=== PATIENT | female | born 1950 | race Caucasian/White ===

== ENCOUNTER 2016-11-28 14:32 | Emergency (ER) | payer OTHER ==
[~2016-11-28] VITALS: Ht 152.4 cm; Wt 136.8 kg
[~2016-11-28 14:32] MED LIST: ALBUTEROL17 G1 IH; ALDACTONE100 MG PO; ASPIR 8181 M1 PO; ASPIRIN E.C.81 M2 PO; ASPIRIN EC325 MG PO; ATORVASTATIN CA40 MG PO; ATROVENT 00.5 MG/2.5 IH; AUTOPEN1 EACH SQ; Albuterol IH; Aldactone PO; CEFTIN500 MG PO; CLOPIDOGREL75 MG PO; COLACE100 MG PO; COZAAR25 MG PO; CYMBALTA60 MG PO; Colace PO; DELTASONE20 MG PO; DRISDOL50000 UNIT PO; ELAVIL25 MG PO; ENDOCET 5-3251 EACH PO; FLEXERIL10 MG PO; FUROSEMIDE40 MG PO; HUMALOG100 UNIT/1 SC; HUMALOG100 UNIT/1 SQ; LANTUS 3 M100 UNITS/ SC; LANTUS 3 M100 UNITS1 SC; LANTUS100 UNIT/1 SQ; LASIX40 MG PO; Lantus 3 ml Solostar SC; Levothroid,Synthroid PO; NORVASC5 MG PO; NOVOLOG PE100 UNITS/ SC; NOVOLOG100 UNIT/1 SQ; Norvasc PO; OXYCODONE5 MG PO; PREDNISONE10 MG PO; PROVENTIL,2.5 MG/3 M IH; Proventil,Ventolin H IH; SENNA8.6 M1 PO; SENOKOT S,PE1 TABLET PO; SYMBICORT60 INHALAT IH; SYNTHROID50 MCG PO; Symbicort 160-4.5 mc IH; WELCHOL625 MG PO; XOPENEX1.25 MG/0. IH; ZITHROMAX Z-PA250 MG PO; ZITHROMAX250 MG PO; ZOLOFT100 M1 PO; ZOLOFT100 MG PO; Zoloft PO; predniSONE PO
[2016-11-28] MEDS ORDERED: FLEXERIL10 MG PO (18:29)
[2016-11-28 19:05] VITALS: BP 141/62
== END 2016-11-28 19:06 | disposition home or self-care (01) ==
LOC: EME 14:32
DX: S73.191A Other sprain of right hip, initial encounter (principal); E11.9 Type 2 diabetes mellitus without complications; Z79.4 Long term (current) use of insulin; Z99.81 Dependence on supplemental oxygen; Z86.73 Personal history of transient ischemic attack (TIA), and cerebral infarction without residual deficits; Z88.1 Allergy status to other antibiotic agents; Z88.8 Allergy status to other drugs, medicaments and biological substances
CPT/HCPCS: 73502; 73552; 99281; 99284

== ENCOUNTER 2016-12-09 13:23 | Inpatient (IN) | payer OTHER ==
[~2016-12-09] VITALS: Ht 152.4 cm; Wt 131.0 kg
[2016-12-09] MEDS ORDERED: ASPIR 8181 M1 PO (14:51)
[2016-12-09] MEDS ORDERED: CYMBALTA60 MG PO (14:53)
[2016-12-09] MEDS ORDERED: OXAYDO5 MG PO (14:54)
[2016-12-09] MEDS ORDERED: CALTRATE 600 +1 EAC2 PO (14:55)
[2016-12-09 15:49] LABS: EOSINOPHIL (%) 2.1 % (0-5); EOSINOPHIL COUNT 0.1 K/uL (0-0.3); HEMATOCRIT 39.2 % (36.0-46.0); IMMATURE GRANULOCYTE (%) 0.2 % (0.0-0.7); INSTRUMENT ABS NEUTROPHIL CT 5.3 K/uL; LYMPHOCYTE COUNT 0.7 K/uL (1.0-2.8); MCH 25.7 PG (29.0-34.0); MCHC 31.4 G/DL (30.0-36.0); MCV 81.8 FL (83-99); MEAN PLAT.VOLUME 10.6 uM^3 (9.5-12.4); MONOCYTE (%) 6.4 % (3-12); MONOCYTE COUNT 0.4 K/uL (0-0.8); NEUTROPHIL (%) 80.2 % (45-76); NEUTROPHIL COUNT 5.3 K/uL (1.8-6.4); PLATELET COUNT 167 K/uL (156-360); RBC DIS.WIDTH-CV 13.2 % (11.8-14.6); RBC DIS.WIDTH-SD 39.8 % (39-53); RED BLOOD COUNT 4.79 M/uL (3.80-5.20); WHITE BLOOD COUNT 6.6 K/uL (4.1-10.2)
[2016-12-09 15:57] LABS: CHLORIDE 99 mEq/L (99-109); POTASSIUM 4.1 mEq/L (3.7-5.4); SODIUM 141 mEq/L (136-147)
[2016-12-09 15:58] LABS: GLUCOSE 131 mg/dL (70-99)
[2016-12-09 16:00] LABS: ANION GAP 12 MEQ/L (2-14)
[2016-12-09 16:02] LABS: GFR ESTIMATE (CALCULATED) 32 mL/min/
[2016-12-09 16:03] LABS: UREA NITROGEN (BUN) 66 mg/dL (9-23)
[2016-12-09] MEDS ORDERED: FLEXERIL10 MG PO (16:28)
[2016-12-09] MEDS ORDERED: PLAVIX PO (16:28)
[2016-12-09] MEDS ORDERED: LITE COAT ASPI325 M1 PO (16:30)
[2016-12-09] MEDS ORDERED: FUROSEMIDE40 MG PO (16:31)
[2016-12-09] MEDS ORDERED: HUMALOG100 UNIT/1 SC (16:33)
[2016-12-09] MEDS ORDERED: HYDROXYZINE HCL25 MG PO (16:34)
[2016-12-09] MEDS ORDERED: TOUJEO SOL300 UNIT/1 SC (16:34)
[2016-12-09] MEDS ORDERED: MIRALAX255 GM PO (16:34)
[2016-12-09] MEDS ORDERED: AMLODIPINE PO (16:35)
[2016-12-09] MEDS ORDERED: VENTOLIN HFA18 GM IH (16:35)
[2016-12-09 18:44] VITALS: BP 180/75
[2016-12-09 20:20] LABS: POINT-OF-CARE METER ID UU14162508
[2016-12-10] VITALS (7 sets, daily range): BP systolic 113–152; BP diastolic 43–73
[2016-12-10 07:15] LABS: ANION GAP 8 MEQ/L (2-14); CHLORIDE 100 MEQ/L (99-109); GFR ESTIMATE (CALCULATED) 40 mL/min/; GLUCOSE 149 mg/dL (70-99); POTASSIUM 3.8 MEQ/L (3.7-5.4); SAMPLE HEMOLYSIS CHECK 0; SAMPLE ICTERIC CHECK 0; SAMPLE LIPEMIA CHECK 0; SODIUM 142 MEQ/L (136-147); UREA NITROGEN (BUN) 52 mg/dL (9-23)
[2016-12-10 11:49] LABS: POINT-OF-CARE METER ID UU14162508
[2016-12-11 03:34] VITALS: BP 139/62
[2016-12-11 06:22] LABS: POINT-OF-CARE METER ID UU14162508
[2016-12-11 07:12] VITALS: BP 130/61
[2016-12-11 07:12] LABS: EOSINOPHIL (%) 4.1 % (0-5); EOSINOPHIL COUNT 0.2 K/uL (0-0.3); HEMATOCRIT 33.3 % (36.0-46.0); IMMATURE GRANULOCYTE (%) 0.5 % (0.0-0.7); INSTRUMENT ABS NEUTROPHIL CT 3.9 K/uL; LYMPHOCYTE COUNT 0.9 K/uL (1.0-2.8); MCH 25.3 PG (29.0-34.0); MCHC 30.3 G/DL (30.0-36.0); MCV 83.5 FL (83-99); MEAN PLAT.VOLUME 10.7 uM^3 (9.5-12.4); MONOCYTE (%) 9.1 % (3-12); MONOCYTE COUNT 0.5 K/uL (0-0.8); NEUTROPHIL (%) 69.4 % (45-76); NEUTROPHIL COUNT 3.9 K/uL (1.8-6.4); PLATELET COUNT 144 K/uL (156-360); RBC DIS.WIDTH-CV 13.4 % (11.8-14.6); RED BLOOD COUNT 3.99 M/uL (3.80-5.20); WHITE BLOOD COUNT 5.6 K/uL (4.1-10.2)
[2016-12-11 07:32] LABS: ANION GAP 8 MEQ/L (2-14); CHLORIDE 99 MEQ/L (99-109); GFR ESTIMATE (CALCULATED) 37 mL/min/; GLUCOSE 144 mg/dL (70-99); MAGNESIUM 2.2 mg/dl (1.3-2.7); SAMPLE HEMOLYSIS CHECK 0; SAMPLE ICTERIC CHECK 0; SAMPLE LIPEMIA CHECK 0; SODIUM 142 MEQ/L (136-147); UREA NITROGEN (BUN) 43 mg/dL (9-23)
[2016-12-11 07:41] LABS: UR CREATININE CONCENTRATION 90.7 MG/DL
[2016-12-11 11:21] VITALS: BP 118/57
[2016-12-11 15:05] LABS: ADD MIUA? YES; BILIRUBIN NEGATIVE; BLOOD NEGATIVE; COLOR YELLOW ((YELLOW)); GLUCOSE (STRIP) NEGATIVE; KETONES NEGATIVE; LEUKOCYTES MODERATE; NITRITE NEGATIVE; PROTEIN (STRIP) NEGATIVE; SPECIFIC GRAVITY 1.014 (1.000-1.030); UROBILINOGEN 0.2 MG/DL (0.2-1.0)
[2016-12-11 15:29] VITALS: BP 120/58
[2016-12-11 15:52] LABS: RED BLOOD CELLS 0-5 /HPF (0-5)
[2016-12-11 15:53] LABS: BACTERIA 1+ /HPF; CASTS NONE SEEN /LPF; CRYSTALS NONE SEEN; EPITHELIAL CELLS 3+ /HPF; MUCUS NONE SEEN /LPF; UCUL ADDED? NO
[2016-12-11 23:22] VITALS: BP 113/59
[2016-12-12 06:49] LABS: EOSINOPHIL (%) 4.2 % (0-5); EOSINOPHIL COUNT 0.3 K/uL (0-0.3); HEMATOCRIT 34.8 % (36.0-46.0); IMMATURE GRANULOCYTE (%) 0.2 % (0.0-0.7); INSTRUMENT ABS NEUTROPHIL CT 4.3 K/uL; MCH 25.8 PG (29.0-34.0); MCHC 30.7 G/DL (30.0-36.0); MCV 84.1 FL (83-99); MEAN PLAT.VOLUME 10.8 uM^3 (9.5-12.4); MONOCYTE (%) 8.5 % (3-12); MONOCYTE COUNT 0.5 K/uL (0-0.8); NEUTROPHIL (%) 69.8 % (45-76); NEUTROPHIL COUNT 4.3 K/uL (1.8-6.4); PLATELET COUNT 155 K/uL (156-360); RBC DIS.WIDTH-CV 13.4 % (11.8-14.6); RBC DIS.WIDTH-SD 41.5 % (39-53); RED BLOOD COUNT 4.14 M/uL (3.80-5.20); WHITE BLOOD COUNT 6.1 K/uL (4.1-10.2)
[2016-12-12 07:14] LABS: ANION GAP 7 MEQ/L (2-14); CHLORIDE 97 MEQ/L (99-109); GFR ESTIMATE (CALCULATED) 32 mL/min/; GLUCOSE 164 mg/dL (70-99); POTASSIUM 4.4 MEQ/L (3.7-5.4); SAMPLE HEMOLYSIS CHECK 0; SAMPLE ICTERIC CHECK 0; SAMPLE LIPEMIA CHECK 0; SODIUM 138 MEQ/L (136-147); UREA NITROGEN (BUN) 49 mg/dL (9-23)
[2016-12-12 07:35] VITALS: BP 122/54
[2016-12-12] MEDS ORDERED: CLOPIDOGREL75 MG PO (10:48)
[2016-12-12] MEDS ORDERED: BACTRIM,SEPT1 TABLET PO (10:51)
== END 2016-12-12 13:06 | disposition home health service (06) | DRG 602 ==
LOC: EME 13:23 → EDOF 16:21 → 2EAST 16:21
PROVIDERS: Emergency Medicine; Internal Medicine; Internal Medicine Nephrology
DX: L03.116 Cellulitis of left lower limb (principal); N17.0 Acute kidney failure with tubular necrosis; T50.1X5A Adverse effect of loop [high-ceiling] diuretics, initial encounter; J96.11 Chronic respiratory failure with hypoxia; L97.821 Non-pressure chronic ulcer of other part of left lower leg limited to breakdown of skin; L97.811 Non-pressure chronic ulcer of other part of right lower leg limited to breakdown of skin; L03.115 Cellulitis of right lower limb; E11.22 Type 2 diabetes mellitus with diabetic chronic kidney disease; I12.9 Hypertensive chronic kidney disease with stage 1 through stage 4 chronic kidney disease, or unspecified chronic kidney disease; N18.3 Chronic kidney disease, stage 3 (moderate); M70.61 Trochanteric bursitis, right hip; M70.62 Trochanteric bursitis, left hip; E03.9 Hypothyroidism, unspecified; G47.30 Sleep apnea, unspecified; J44.9 Chronic obstructive pulmonary disease, unspecified; J45.909 Unspecified asthma, uncomplicated; K74.60 Unspecified cirrhosis of liver; M16.11 Unilateral primary osteoarthritis, right hip; E66.9 Obesity, unspecified; Z68.43 Body mass index [BMI] 50.0-59.9, adult; Z99.81 Dependence on supplemental oxygen; Z79.4 Long term (current) use of insulin
CPT/HCPCS: 73502; 76770; 80048; 80202; 81003; 82570; 82948; 83735; 84100; 84156; 85025; 87040; 93971; 94640; 94640 76; 94760; 94799; 99202; 99281; 99285; J1644; J1815; J3370; J7030

== ENCOUNTER 2017-10-30 15:10 | Inpatient (IN) | payer OTHER ==
[~2017-10-30] VITALS: Ht 152.4 cm; Wt 125.0 kg
[~2017-10-30 15:10] MED LIST changes: +AMLODIPINE PO; +BACTRIM,SEPT1 TABLET PO; +CALTRATE 600 +1 EAC2 PO; +HYDROXYZINE HCL25 MG PO; +LITE COAT ASPI325 M1 PO; +MIRALAX17 GM PO; +OXAYDO5 MG PO; +PLAVIX PO; +TOUJEO SOL300 UNIT/1 SC; +VENTOLIN HFA18 GM IH
[2017-10-30 17:47] LABS: HEMATOCRIT 39.1 % (36.0-46.0); HEMOGLOBIN 12.6 G/DL (11.9-15.5); MCH 28.3 PG (29.0-34.0); MCHC 32.2 G/DL (30.0-36.0); MCV 87.7 FL (83-99); PLATELET COUNT 167 K/uL (156-360); RBC DIS.WIDTH-CV 13.1 % (11.8-14.6); RBC DIS.WIDTH-SD 41.6 % (39-53); RED BLOOD COUNT 4.46 M/uL (3.80-5.20); WHITE BLOOD COUNT 7.9 K/uL (4.1-10.2)
[2017-10-30 17:59] LABS: CHLORIDE 102 mEq/L (99-109); POTASSIUM 4.7 mEq/L (3.7-5.4); SODIUM 138 mEq/L (136-147)
[2017-10-30] MEDS ORDERED: LANTUS 3 M100 UNITS1 SC (17:59)
[2017-10-30] MEDS ORDERED: NORVASC5 MG PO (17:59)
[2017-10-30 18:00] LABS: GLUCOSE 170 mg/dL (70-99)
[2017-10-30] MEDS ORDERED: ALDACTONE25 MG PO (18:01)
[2017-10-30] MEDS ORDERED: LASIX40 MG PO (18:01)
[2017-10-30] MEDS ORDERED: HUMALOG100 UNIT/2 SC (18:03)
[2017-10-30 18:04] LABS: CREATININE 1.6 mg/dL (0.6-1.3); GFR ESTIMATE (CALCULATED) 34 mL/min/
[2017-10-30 18:05] LABS: UREA NITROGEN (BUN) 73 mg/dL (9-23)
[2017-10-30] MEDS ORDERED: PROVENTIL,2.5 MG/3 M IH (18:07)
[2017-10-30] MEDS ORDERED: CLOPIDOGREL75 MG PO (18:11)
[2017-10-30 20:05] LABS: C-REACTIVE PROTEIN 18.3 MG/L (0-10)
[2017-10-31 06:40] LABS: BASOPHIL (%) 0.7 % (0-1); BASOPHIL COUNT 0.1 K/uL (0-0.1); EOSINOPHIL (%) 3.3 % (0-5); EOSINOPHIL COUNT 0.2 K/uL (0-0.3); HEMATOCRIT 37.2 % (36.0-46.0); HEMOGLOBIN 11.6 G/DL (11.9-15.5); IMMATURE GRANULOCYTE (%) 0.3 % (0.0-0.7); LYMPHOCYTE (%) 13.1 % (15-42); LYMPHOCYTE COUNT 0.9 K/uL (1.0-2.8); MCH 27.8 PG (29.0-34.0); MCHC 31.2 G/DL (30.0-36.0); MONOCYTE (%) 9.7 % (3-12); MONOCYTE COUNT 0.7 K/uL (0-0.8); NEUTROPHIL (%) 72.9 % (45-76); NEUTROPHIL COUNT 5.1 K/uL (1.8-6.4); PLATELET COUNT 159 K/uL (156-360); RBC DIS.WIDTH-CV 13.2 % (11.8-14.6); RBC DIS.WIDTH-SD 42.9 % (39-53); RED BLOOD COUNT 4.18 M/uL (3.80-5.20); WHITE BLOOD COUNT 6.9 K/uL (4.1-10.2)
[2017-10-31 06:52] LABS: CHLORIDE 104 mEq/L (99-109); POTASSIUM 4.7 mEq/L (3.7-5.4); SODIUM 140 mEq/L (136-147)
[2017-10-31 06:54] LABS: GLUCOSE 190 mg/dL (70-99)
[2017-10-31 06:58] LABS: CREATININE 1.7 mg/dL (0.6-1.3); GFR ESTIMATE (CALCULATED) 32 mL/min/
[2017-10-31 06:59] LABS: UREA NITROGEN (BUN) 66 mg/dL (9-23)
[2017-10-31 14:01] VITALS: BP 109/48
[2017-10-31 20:06] VITALS: BP 121/56
[2017-11-01] VITALS (7 sets, daily range): BP systolic 95–133; BP diastolic 41–75
[2017-11-01 07:10] LABS: BASOPHIL (%) 0.7 % (0-1); EOSINOPHIL (%) 2.8 % (0-5); EOSINOPHIL COUNT 0.2 K/uL (0-0.3); HEMATOCRIT 35.3 % (36.0-46.0); IMMATURE GRANULOCYTE (%) 0.3 % (0.0-0.7); LYMPHOCYTE (%) 18.7 % (15-42); LYMPHOCYTE COUNT 1.1 K/uL (1.0-2.8); MCH 27.7 PG (29.0-34.0); MCHC 31.2 G/DL (30.0-36.0); MCV 88.9 FL (83-99); MONOCYTE (%) 10.2 % (3-12); MONOCYTE COUNT 0.6 K/uL (0-0.8); NEUTROPHIL (%) 67.3 % (45-76); PLATELET COUNT 177 K/uL (156-360); RBC DIS.WIDTH-CV 13.2 % (11.8-14.6); RED BLOOD COUNT 3.97 M/uL (3.80-5.20)
[2017-11-01 07:13] LABS: ALKALINE PHOSPHATASE 142 IU/L (3-129); ALT (GPT) 14 IU/L (3-49); AST (GOT) 15 IU/L (2-34); CHLORIDE 105 MEQ/L (99-109); GFR ESTIMATE (CALCULATED) 26 mL/min/; POTASSIUM 4.9 MEQ/L (3.7-5.4); SODIUM 139 MEQ/L (136-147); TOTAL BILIRUBIN 0.6 MG/DL (0.0-1.0); TOTAL PROTEIN 5.5 G/DL (6.4-8.3); UREA NITROGEN (BUN) 68 mg/dL (9-23)
[2017-11-01 07:17] LABS: GLUCOSE 114 mg/dL (70-99)
[2017-11-01 13:54] LABS: HEMOGLOBIN A1c (GLYCOHEMOGLOB) 7.2 % (Below 5.7)
[2017-11-02 07:20] VITALS: BP 127/58
[2017-11-02 07:45] LABS: BASOPHIL (%) 0.8 % (0-1); BASOPHIL COUNT 0.1 K/uL (0-0.1); EOSINOPHIL (%) 3.4 % (0-5); EOSINOPHIL COUNT 0.2 K/uL (0-0.3); HEMATOCRIT 33.8 % (36.0-46.0); HEMOGLOBIN 10.5 G/DL (11.9-15.5); IMMATURE GRANULOCYTE (%) 0.2 % (0.0-0.7); LYMPHOCYTE (%) 15.3 % (15-42); LYMPHOCYTE COUNT 0.9 K/uL (1.0-2.8); MCH 27.5 PG (29.0-34.0); MCHC 31.1 G/DL (30.0-36.0); MCV 88.5 FL (83-99); MONOCYTE (%) 10.2 % (3-12); MONOCYTE COUNT 0.6 K/uL (0-0.8); NEUTROPHIL (%) 70.1 % (45-76); NEUTROPHIL COUNT 4.3 K/uL (1.8-6.4); PLATELET COUNT 170 K/uL (156-360); RBC DIS.WIDTH-CV 13.1 % (11.8-14.6); RED BLOOD COUNT 3.82 M/uL (3.80-5.20); WHITE BLOOD COUNT 6.1 K/uL (4.1-10.2)
[2017-11-02 08:14] LABS: ALKALINE PHOSPHATASE 138 IU/L (3-129); ALT (GPT) 9 IU/L (3-49); AST (GOT) 14 IU/L (2-34); CHLORIDE 99 MEQ/L (99-109); CREATININE 2.2 MG/DL (0.6-1.3); GFR ESTIMATE (CALCULATED) 24 mL/min/; POTASSIUM 4.9 MEQ/L (3.7-5.4); SODIUM 133 MEQ/L (136-147); TOTAL BILIRUBIN 0.5 MG/DL (0.0-1.0); TOTAL PROTEIN 5.4 G/DL (6.4-8.3); UREA NITROGEN (BUN) 71 mg/dL (9-23)
[2017-11-02 08:16] LABS: GLUCOSE 216 mg/dL (70-99)
[2017-11-02 11:19] LABS: APPEARANCE SL.HAZY ((CLEAR)); BILIRUBIN NEGATIVE; BLOOD NEGATIVE; COLOR YELLOW ((YELLOW)); GLUCOSE (STRIP) NEGATIVE; KETONES NEGATIVE; LEUKOCYTES TRACE; NITRITE NEGATIVE; PROTEIN (STRIP) NEGATIVE; SPECIFIC GRAVITY 1.011 (1.000-1.030); UROBILINOGEN 0.2 MG/DL (0.2-1.0)
[2017-11-02 11:41] LABS: BACTERIA NONE SEEN /HPF; EPITHELIAL CELLS 1+ /HPF; HYALINE CASTS 20-30 /LPF; MUCUS TRACE /LPF; RED BLOOD CELLS 0-5 /HPF (0-5); UCUL ADDED? NO; WHITE BLOOD CELLS 0-5 /HPF (0-5)
[2017-11-02 17:42] VITALS: BP 96/42
[2017-11-02 23:05] VITALS: BP 115/55
[2017-11-03 08:00] VITALS: BP 122/55
[2017-11-03 08:29] LABS: BASOPHIL (%) 0.6 % (0-1); BASOPHIL COUNT 0.1 K/uL (0-0.1); EOSINOPHIL (%) 1.8 % (0-5); EOSINOPHIL COUNT 0.2 K/uL (0-0.3); HEMATOCRIT 38.2 % (36.0-46.0); HEMOGLOBIN 12.1 G/DL (11.9-15.5); IMMATURE GRANULOCYTE (%) 0.2 % (0.0-0.7); LYMPHOCYTE (%) 8.3 % (15-42); LYMPHOCYTE COUNT 0.7 K/uL (1.0-2.8); MCH 28.1 PG (29.0-34.0); MCHC 31.7 G/DL (30.0-36.0); MCV 88.8 FL (83-99); MONOCYTE (%) 8.1 % (3-12); MONOCYTE COUNT 0.7 K/uL (0-0.8); NEUTROPHIL COUNT 6.9 K/uL (1.8-6.4); NRBC (%) 0.6 /100 WBC (0-0); PLATELET COUNT 168 K/uL (156-360); RBC DIS.WIDTH-CV 13.2 % (11.8-14.6); RBC DIS.WIDTH-SD 42.5 % (39-53); WHITE BLOOD COUNT 8.5 K/uL (4.1-10.2)
[2017-11-03 09:55] LABS: ALBUMIN 3.3 G/DL (3.2-4.8); ALT (GPT) 9 IU/L (3-49); CHLORIDE 99 MEQ/L (99-109); CREATININE 2.1 MG/DL (0.6-1.3); GFR ESTIMATE (CALCULATED) 25 mL/min/; GLUCOSE 225 mg/dL (70-99); PHOSPHORUS 3.9 mg/dL (2.5-4.9); SODIUM 132 MEQ/L (136-147); TOTAL BILIRUBIN 0.6 MG/DL (0.0-1.0); TOTAL PROTEIN 6.1 G/DL (6.4-8.3); UREA NITROGEN (BUN) 79 mg/dL (9-23); URIC ACID 9.9 mg/dL (3.1-9.2)
[2017-11-03 09:56] LABS: ALKALINE PHOSPHATASE 174 IU/L (3-129); AST (GOT) 22 IU/L (2-34)
[2017-11-03 15:42] LABS: CHLORIDE 99 mEq/L (99-109); POTASSIUM 5.7 mEq/L (3.7-5.4); SODIUM 134 mEq/L (136-147)
[2017-11-03 15:43] LABS: GLUCOSE 224 mg/dL (70-99)
[2017-11-03 15:47] LABS: CREATININE 2.2 mg/dL (0.6-1.3); GFR ESTIMATE (CALCULATED) 24 mL/min/
[2017-11-03 15:48] LABS: UREA NITROGEN (BUN) 82 mg/dL (9-23)
[2017-11-03 16:00] VITALS: BP 127/53
[2017-11-03 23:54] VITALS: BP 109/44
[2017-11-04 06:16] LABS: BASOPHIL (%) 0.7 % (0-1); EOSINOPHIL COUNT 0.2 K/uL (0-0.3); HEMATOCRIT 32.7 % (36.0-46.0); HEMOGLOBIN 10.4 G/DL (11.9-15.5); IMMATURE GRANULOCYTE (%) 0.6 % (0.0-0.7); LYMPHOCYTE COUNT 0.8 K/uL (1.0-2.8); MCH 27.6 PG (29.0-34.0); MCHC 31.8 G/DL (30.0-36.0); MCV 86.7 FL (83-99); MONOCYTE (%) 8.1 % (3-12); MONOCYTE COUNT 0.4 K/uL (0-0.8); NEUTROPHIL (%) 73.6 % (45-76); PLATELET COUNT 170 K/uL (156-360); RBC DIS.WIDTH-CV 13.1 % (11.8-14.6); RBC DIS.WIDTH-SD 41.2 % (39-53); RED BLOOD COUNT 3.77 M/uL (3.80-5.20); WHITE BLOOD COUNT 5.4 K/uL (4.1-10.2)
[2017-11-04 06:39] LABS: ALBUMIN 2.9 G/DL (3.2-4.8); CHLORIDE 103 MEQ/L (99-109); GLUCOSE 157 mg/dL (70-99); POTASSIUM 5.6 MEQ/L (3.7-5.4); SODIUM 138 MEQ/L (136-147); UREA NITROGEN (BUN) 71 mg/dL (9-23)
[2017-11-04 06:45] LABS: ALKALINE PHOSPHATASE 136 IU/L (3-129); ALT (GPT) 8 IU/L (3-49); AST (GOT) 20 IU/L (2-34); CHLORIDE 103 MEQ/L (99-109); GLUCOSE 158 mg/dL (70-99); POTASSIUM 5.4 MEQ/L (3.7-5.4); SODIUM 137 MEQ/L (136-147); TOTAL PROTEIN 5.9 G/DL (6.4-8.3); UREA NITROGEN (BUN) 72 mg/dL (9-23)
[2017-11-04 06:49] LABS: CREATININE 1.7 MG/DL (0.6-1.3); GFR ESTIMATE (CALCULATED) 32 mL/min/; TOTAL BILIRUBIN 0.4 MG/DL (0.0-1.0)
[2017-11-04 10:10] VITALS: BP 131/60
[2017-11-04 17:03] VITALS: BP 147/62
[2017-11-05 00:12] VITALS: BP 113/46
[2017-11-05 06:43] LABS: BASOPHIL (%) 0.7 % (0-1); EOSINOPHIL (%) 2.9 % (0-5); EOSINOPHIL COUNT 0.2 K/uL (0-0.3); HEMATOCRIT 31.6 % (36.0-46.0); HEMOGLOBIN 9.9 G/DL (11.9-15.5); IMMATURE GRANULOCYTE (%) 0.3 % (0.0-0.7); LYMPHOCYTE (%) 14.1 % (15-42); LYMPHOCYTE COUNT 0.8 K/uL (1.0-2.8); MCH 27.7 PG (29.0-34.0); MCHC 31.3 G/DL (30.0-36.0); MCV 88.3 FL (83-99); MONOCYTE (%) 9.1 % (3-12); MONOCYTE COUNT 0.5 K/uL (0-0.8); NEUTROPHIL (%) 72.9 % (45-76); NEUTROPHIL COUNT 4.4 K/uL (1.8-6.4); PLATELET COUNT 170 K/uL (156-360); RBC DIS.WIDTH-CV 13.3 % (11.8-14.6); RBC DIS.WIDTH-SD 42.9 % (39-53); RED BLOOD COUNT 3.58 M/uL (3.80-5.20)
[2017-11-05 07:11] LABS: CHLORIDE 104 MEQ/L (99-109); CREATININE 1.4 MG/DL (0.6-1.3); GFR ESTIMATE (CALCULATED) 40 mL/min/; GLUCOSE 183 mg/dL (70-99); PHOSPHORUS 2.7 mg/dL (2.5-4.9); SODIUM 140 MEQ/L (136-147); UREA NITROGEN (BUN) 56 mg/dL (9-23)
[2017-11-05 07:45] VITALS: BP 128/65
[2017-11-05] MEDS ORDERED: SPIRIVA RESPIMAT4 GM IH (12:13)
[2017-11-05] MEDS ORDERED: LASIX40 MG PO (12:13)
[2017-11-05] MEDS ORDERED: Zeasorb Antifungal T TP (12:13)
== END 2017-11-05 14:22 | disposition home or self-care (01) | DRG 602 ==
LOC: EME 15:10 → EDOF 19:13 → ENRESERV 19:14 → EDOF 10-31 05:54 → ENRESERV 10-31 12:09 → 2EAST 10-31 13:44
PROVIDERS: Hospitalist; Internal Medicine; Internal Medicine Nephrology; Nurse Practitioner Family
DX: L03.115 Cellulitis of right lower limb (principal); L03.116 Cellulitis of left lower limb; N17.0 Acute kidney failure with tubular necrosis; E87.5 Hyperkalemia; B36.9 Superficial mycosis, unspecified; I13.0 Hypertensive heart and chronic kidney disease with heart failure and stage 1 through stage 4 chronic kidney disease, or unspecified chronic kidney disease; I50.9 Heart failure, unspecified; E11.22 Type 2 diabetes mellitus with diabetic chronic kidney disease; N18.3 Chronic kidney disease, stage 3 (moderate); J96.11 Chronic respiratory failure with hypoxia; J44.9 Chronic obstructive pulmonary disease, unspecified; E03.9 Hypothyroidism, unspecified; E66.01 Morbid (severe) obesity due to excess calories; E78.5 Hyperlipidemia, unspecified; G89.29 Other chronic pain; I87.2 Venous insufficiency (chronic) (peripheral); L97.821 Non-pressure chronic ulcer of other part of left lower leg limited to breakdown of skin; L97.811 Non-pressure chronic ulcer of other part of right lower leg limited to breakdown of skin; I89.0 Lymphedema, not elsewhere classified; K21.9 Gastro-esophageal reflux disease without esophagitis; K74.60 Unspecified cirrhosis of liver; F32.9 Major depressive disorder, single episode, unspecified; Z68.44 Body mass index [BMI] 60.0-69.9, adult; Z79.4 Long term (current) use of insulin; Z99.81 Dependence on supplemental oxygen; Z79.82 Long term (current) use of aspirin
CPT/HCPCS: 71045; 80048; 80048 91; 80053; 80069; 81003; 82570; 82948; 83036; 83605; 83880; 84100; 84156; 84550; 85025; 85027; 85652; 86140; 87040; 93970; 94640; 94640 76; 94760; 94799; 97530 GO; 99202; 99281; 99285; J0690; J1644; J1815; J3370; J7030

== ENCOUNTER 2018-01-14 12:21 | Inpatient (IN) | payer OTHER ==
[~2018-01-14] VITALS: Ht 152.4 cm; Wt 117.9 kg
[~2018-01-14 12:21] MED LIST changes: +ALDACTONE25 MG PO; +HUMALOG100 UNIT/2 SC; +SPIRIVA RESPIMAT4 GM IH; +Zeasorb Antifungal T TP
[2018-01-14 13:31] LABS: BASOPHIL (%) 0.6 % (0-1); EOSINOPHIL (%) 2.9 % (0-5); EOSINOPHIL COUNT 0.2 K/uL (0-0.3); HEMATOCRIT 42.3 % (36.0-46.0); HEMOGLOBIN 13.9 G/DL (11.9-15.5); IMMATURE GRANULOCYTE (%) 0.1 % (0.0-0.7); LYMPHOCYTE (%) 16.2 % (15-42); LYMPHOCYTE COUNT 1.1 K/uL (1.0-2.8); MCHC 32.9 G/DL (30.0-36.0); MCV 85.3 FL (83-99); MONOCYTE (%) 6.6 % (3-12); MONOCYTE COUNT 0.5 K/uL (0-0.8); NEUTROPHIL (%) 73.6 % (45-76); NEUTROPHIL COUNT 5.1 K/uL (1.8-6.4); PLATELET COUNT 133 K/uL (156-360); RBC DIS.WIDTH-CV 13.4 % (11.8-14.6); RBC DIS.WIDTH-SD 41.1 % (39-53); RED BLOOD COUNT 4.96 M/uL (3.80-5.20); WHITE BLOOD COUNT 6.9 K/uL (4.1-10.2)
[2018-01-14 13:37] LABS: INTER. NORMALIZED RATIO 1.1
[2018-01-14 13:39] LABS: AMYLASE 52 IU/L (1-118); CHLORIDE 97 mEq/L (99-109); POTASSIUM 4.6 mEq/L (3.7-5.4); PTT 26.7 SEC (25-37); SODIUM 139 mEq/L (136-147)
[2018-01-14 13:41] LABS: GLUCOSE 173 mg/dL (70-99)
[2018-01-14 13:44] LABS: SERUM ETHYL ALCOHOL < 10 mg/dL
[2018-01-14 13:45] LABS: CREATININE 1.7 mg/dL (0.6-1.3); GFR ESTIMATE (CALCULATED) 32 mL/min/
[2018-01-14 13:46] LABS: UREA NITROGEN (BUN) 67 mg/dL (9-23)
[2018-01-14 13:46] LABS: TROP-I INTERPRETATION NEGATIVE; TROPONIN-I < 0.01 ng/mL (0.0-0.30)
[2018-01-14 13:48] LABS: LIPASE 51 U/L (1.0-51.0)
[2018-01-14] MEDS ORDERED: LO-DOSE ASPIRIN81 M1 PO (15:30)
[2018-01-14] MEDS ORDERED: LASIX40 MG PO (15:31)
[2018-01-14] MEDS ORDERED: ALBUTEROL2.5 MG/0.5 IH (15:32)
[2018-01-14] MEDS ORDERED: SALINE NASAL SP45 ML BOTH NARES (15:33)
[2018-01-14 16:40] LABS: HDL CHOLESTEROL 49 MG/DL (Desirable>=50); LDL CHOLESTEROL 193 mg/dL (Desirable<100); NON-HDL CHOLESTEROL 223 mg/dL (Desirable<160); TOTAL CHOLESTEROL 272 mg/dL (Desirable<200); TRIGLYCERIDES 149 MG/DL (Normal: <150)
[2018-01-14 17:09] VITALS: BP 126/55
[2018-01-14 19:43] VITALS: BP 117/57
[2018-01-14 20:21] LABS: APPEARANCE CLEAR ((CLEAR)); BILIRUBIN NEGATIVE; BLOOD NEGATIVE; COLOR STRAW ((YELLOW)); GLUCOSE (STRIP) NEGATIVE; KETONES NEGATIVE; LEUKOCYTES NEGATIVE; NITRITE NEGATIVE; PROTEIN (STRIP) NEGATIVE; UCUL ADDED? NO; UROBILINOGEN 0.2 MG/DL (0.2-1.0)
[2018-01-14 21:19] LABS: AMPHETAMINE NEGATIVE (500 ng/mL); BARBITURATES NEGATIVE (200 ng/mL); BENZODIAZEPINES NEGATIVE (150 ng/mL); BUPRENORPHINE NEGATIVE (10 ng/mL); COCAINE NEGATIVE (150 ng/mL); METHADONE NEGATIVE (200 ng/mL); METHAMPHETAMINE NEGATIVE (500 ng/mL); OPIATES (MORPHINE) NEGATIVE (100 ng/mL); OXYCODONE NEGATIVE (100 ng/mL); PHENCYCLIDINE NEGATIVE (25 ng/mL); PROPOXYPHENE NEGATIVE (300 ng/mL); THC CANNABINOIDS NEGATIVE (50 ng/mL); TRICYCLIC ANTIDEPRESSANTS NEGATIVE (300 ng/mL)
[2018-01-14 23:43] VITALS: BP 105/47
[2018-01-15 04:03] VITALS: BP 93/44
[2018-01-15 05:52] VITALS: BP 130/58
[2018-01-15 07:52] VITALS: BP 133/63
[2018-01-15 08:10] LABS: HEMATOCRIT 38.7 % (36.0-46.0); HEMOGLOBIN 12.5 G/DL (11.9-15.5); MCH 27.4 PG (29.0-34.0); MCHC 32.3 G/DL (30.0-36.0); MCV 84.9 FL (83-99); PLATELET COUNT 129 K/uL (156-360); RBC DIS.WIDTH-CV 13.5 % (11.8-14.6); RBC DIS.WIDTH-SD 41.9 % (39-53); RED BLOOD COUNT 4.56 M/uL (3.80-5.20); WHITE BLOOD COUNT 10.6 K/uL (4.1-10.2)
[2018-01-15 08:33] LABS: CHLORIDE 97 MEQ/L (99-109); CREATININE 1.5 MG/DL (0.6-1.3); GFR ESTIMATE (CALCULATED) 37 mL/min/; POTASSIUM 3.7 MEQ/L (3.7-5.4); SODIUM 138 MEQ/L (136-147); UREA NITROGEN (BUN) 55 mg/dL (9-23)
[2018-01-15 08:36] LABS: GLUCOSE 85 mg/dL (70-99)
[2018-01-15 10:29] LABS: HEMOGLOBIN A1c (GLYCOHEMOGLOB) 7.6 % (Below 5.7)
[2018-01-15 11:51] VITALS: BP 146/61
[2018-01-15 16:14] VITALS: BP 132/59
[2018-01-15 19:57] VITALS: BP 120/55
[2018-01-16 00:26] VITALS: BP 132/60
[2018-01-16 04:10] VITALS: BP 116/55
[2018-01-16 06:14] LABS: BASOPHIL (%) 0.6 % (0-1); EOSINOPHIL (%) 4.2 % (0-5); EOSINOPHIL COUNT 0.3 K/uL (0-0.3); IMMATURE GRANULOCYTE (%) 0.3 % (0.0-0.7); LYMPHOCYTE (%) 19.2 % (15-42); LYMPHOCYTE COUNT 1.2 K/uL (1.0-2.8); MCHC 31.6 G/DL (30.0-36.0); MCV 85.6 FL (83-99); MONOCYTE (%) 8.8 % (3-12); MONOCYTE COUNT 0.6 K/uL (0-0.8); NEUTROPHIL (%) 66.9 % (45-76); NEUTROPHIL COUNT 4.3 K/uL (1.8-6.4); PLATELET COUNT 123 K/uL (156-360); RBC DIS.WIDTH-CV 13.5 % (11.8-14.6); RBC DIS.WIDTH-SD 42.3 % (39-53); RED BLOOD COUNT 4.44 M/uL (3.80-5.20); WHITE BLOOD COUNT 6.5 K/uL (4.1-10.2)
[2018-01-16 06:51] LABS: ALBUMIN 3.3 G/DL (3.2-4.8); ALKALINE PHOSPHATASE 142 IU/L (3-129); ALT (GPT) 10 IU/L (3-49); AST (GOT) 13 IU/L (2-34); CHLORIDE 99 MEQ/L (99-109); CREATININE 1.8 MG/DL (0.6-1.3); GFR ESTIMATE (CALCULATED) 30 mL/min/; GLUCOSE 155 mg/dL (70-99); SODIUM 141 MEQ/L (136-147); TOTAL BILIRUBIN 0.6 MG/DL (0.0-1.0); TOTAL PROTEIN 5.9 G/DL (6.4-8.3); UREA NITROGEN (BUN) 64 mg/dL (9-23)
[2018-01-16 07:46] VITALS: BP 140/63
[2018-01-16 17:30] VITALS: BP 132/60
[2018-01-17 00:03] VITALS: BP 122/59
[2018-01-17 08:00] VITALS: BP 156/65
[2018-01-17 11:59] LABS: CHLORIDE 101 MEQ/L (99-109); CREATININE 1.6 MG/DL (0.6-1.3); GFR ESTIMATE (CALCULATED) 34 mL/min/; GLUCOSE 176 mg/dL (70-99); POTASSIUM 4.2 MEQ/L (3.7-5.4); SODIUM 142 MEQ/L (136-147); UREA NITROGEN (BUN) 58 mg/dL (9-23)
[2018-01-17 12:07] LABS: HEMATOCRIT 45.3 % (36.0-46.0); MCHC 30.9 G/DL (30.0-36.0); MCV 87.3 FL (83-99); PLATELET COUNT 141 K/uL (156-360); RBC DIS.WIDTH-CV 13.4 % (11.8-14.6); RBC DIS.WIDTH-SD 43.2 % (39-53); RED BLOOD COUNT 5.19 M/uL (3.80-5.20); WHITE BLOOD COUNT 7.9 K/uL (4.1-10.2)
[2018-01-17] MEDS ORDERED: Zeasorb Antifungal T TP (13:01)
[2018-01-17] MEDS ORDERED: NOVOLOG 10100 UNITS/ SC (13:01)
== END 2018-01-17 15:38 | DRG 65 ==
LOC: EME 12:21 → 5SOUTH 14:55 → EDOF 14:55 → ENRESERV 14:57 → 5SOUTH 16:02
PROVIDERS: Emergency Medicine; Hospitalist
DX: I63.8 Other cerebral infarction (principal); R47.81 Slurred speech; G81.94 Hemiplegia, unspecified affecting left nondominant side; R29.810 Facial weakness; R13.10 Dysphagia, unspecified; I12.9 Hypertensive chronic kidney disease with stage 1 through stage 4 chronic kidney disease, or unspecified chronic kidney disease; E11.22 Type 2 diabetes mellitus with diabetic chronic kidney disease; N18.3 Chronic kidney disease, stage 3 (moderate); E11.51 Type 2 diabetes mellitus with diabetic peripheral angiopathy without gangrene; E03.9 Hypothyroidism, unspecified; J44.9 Chronic obstructive pulmonary disease, unspecified; E66.01 Morbid (severe) obesity due to excess calories; Z68.43 Body mass index [BMI] 50.0-59.9, adult; I27.20 Pulmonary hypertension, unspecified; E78.5 Hyperlipidemia, unspecified; K21.9 Gastro-esophageal reflux disease without esophagitis; K74.60 Unspecified cirrhosis of liver; Z79.4 Long term (current) use of insulin; Z79.02 Long term (current) use of antithrombotics/antiplatelets; Z79.82 Long term (current) use of aspirin; Z79.51 Long term (current) use of inhaled steroids; Z90.710 Acquired absence of both cervix and uterus; Z96.622 Presence of left artificial elbow joint; Z71.3 Dietary counseling and surveillance; Z88.8 Allergy status to other drugs, medicaments and biological substances
CPT/HCPCS: 70450; 70544; 70549; 70551; 71045; 80047; 80048; 80053; 80061; 81003; 82150; 82948; 83036; 83690; 84484; 85025; 85027; 85610; 85730; 86850; 86900; 86901; 92507 GN; 92523 GN; 92526 GN; 92610 GN; 93005; 93306; 93880; 93970; 94640; 94640 76; 94799; 97530 GO; 97530 GP; 99202; 99281; 99285; G0480; J1650; J1815